=== PATIENT | male | born 1990 | race African-American/Black ===

== ENCOUNTER 2016-07-27 10:49 | Emergency (ER) | payer SELFPAY ==
[~2016-07-27] VITALS: Ht 177.8 cm; Wt 90.7 kg
[2016-07-27 11:46] VITALS: BP 140/86
[2016-07-27] MEDS ORDERED: DEXAMETHASONE SOD PHOS 20 MG/5 ML VIAL. IM ONE (12:15)
[2016-07-27] MEDS ORDERED: CEPH-264 PO (12:58)
--- NOTE | 2016-07-27 12:58 | PHYS DOC ---
Past Medical History Past Medical History: No Pertinent History Past Surgical History: No Surgical History Additional Information: 2 PPD Alcohol Use: Occasionally Drug Use: None Adult General Chief Complaint Chief Complaint: SKIN RASH/ABSCESS HPI HPI Patient is a 26 year old male who presents with itchy rash for one week. The rash began on his arms and has spread to his neck and trunk. He initially thought that the rash was due to his eczema, however it is worse than his usual eczema. He recently began using a new soap and thinks it is an allergic reaction to the new soap. He has had a sore throat but denies any difficulty breathing or swelling of the lips or tongue. He's been taking Benadryl and applying a topical cortisone cream without relief. He does not have a PCP. Review of Systems Review of Systems Constitutional: Denies fever or chills. [] Eyes: Denies change in visual acuity, redness, or eye pain. [] HENT: Denies ear pain, nasal congestion. Reports sore throat. Denies angioedema. Respiratory: Denies cough or shortness of breath. [] Integument: The ports pruritic rash. Neurologic: Denies focal weakness or sensory changes. [] Current Medications Current Medications Current Medications Medications (Trade) Dose Ordered Sig/Melecio Start Time Stop Time Status Last Admin Dose Admin Dexamethasone Sodium Phosphate (Decadron) 10 mg 1X ONCE 07/27/16 12:15 07/27/16 12:16 DC 07/27/16 12:45 10 MG Allergies Allergies Allergies Coded Allergies Type Severity Reaction Last Updated Verified No Known Drug Allergies 03/10/14 No Physical Exam Physical Exam Constitutional: Well developed, well nourished, no acute distress, non-toxic appearance. [] HENT: Normocephalic, atraumatic, bilateral external ears normal, oropharynx moist, no oral exudates, nose normal. There is no posterior pharyngeal erythema or tonsillar edema. No angioedema. Eyes: PERRLA, EOMI, conjunctiva normal, no discharge. [] Neck: Normal range of motion, no tenderness, supple, no stridor. [] Cardiovascular: Heart rate regular rhythm, no murmur [] Lungs & Thorax: Bilateral breath sounds clear to auscultation without wheezes, rales, or rhonchi. Skin: Warm, dry, no erythema. There is urticarial rash on bilateral upper extremities, neck, chest, and back. There are a few areas of excoriation from scratching with scabbing. There is not appear to be any sign of infection. Back: No tenderness, no CVA tenderness. [] Extremities: No tenderness, no cyanosis, no clubbing, ROM intact, no edema. [] Neurologic: Alert and oriented X 3, normal motor function, normal sensory function, no focal deficits noted. [] Psychologic: Affect normal, judgement normal, mood normal. [] Current Patient Data Vital Signs Vital Signs Date Time Temp Pulse Resp B/P Pulse Ox O2 Delivery O2 Flow Rate FiO2 07/27/16 11:46 98.3 107 18 96 Room Air 98.3 EKG EKG [] Radiology/Procedures Radiology/Procedures [] Course & Med Decision Making Course & Med Decision Making Pertinent Labs and Imaging studies reviewed. (See chart for details) Patient presents with pruritic rash, likely due to allergic reaction to a new soap. He does not have any dyspnea or angioedema. There are areas that have been scratched were all due to itching without evidence of infection. He is given IM Decadron in the emergency department. He is discharged with prescription for Keflex. He is instructed to continue Benadryl and Pepcid at home. He is instructed to discontinue use of the new soap. Return precautions were discussed. He verbalizes understanding and agrees with plan. Dragon Disclaimer Dragon Disclaimer This electronic medical record was generated, in whole or in part, using a voice recognition dictation system. Departure Departure Impression: Primary Impression: Allergic reaction Additional Impression: Urticaria Disposition: 01 HOME, SELF-CARE Condition: STABLE Referrals: NO PCP (PCP) Patient Instructions: Hives, [id number] Additional Instructions: You were treated with a steroid injection for your hives today in the emergency department. Please continue to take Benadryl and Pepcid to help with itching. Use according to package instructions. Please take the prescribed antibiotic to prevent infection from the areas that have been scratched open. Please discontinue use of the new soap that is the likely cause of your allergic reaction. Return to emergency department if you have increased difficult to swelling, swelling of the lips or tongue, or other new or concerning symptoms. Scripts Cephalexin (Keflex)500 Mg Capsule1 Cap PO BID #14 CAP Prov:YOLI,ADRYAN K PA 07/27/16 Problem Qualifiers Primary Impression: Allergic reaction Encounter type: initial encounter Qualified Code: T78.40XA - Allergy, unspecified, initial encounter ADRYAN KENT Jul 27, 2016 12:58
== END 2016-07-27 13:02 | disposition home or self-care (01) ==
LOC: ER 10:49
DX: T78.49XA Other allergy, initial encounter (principal); L50.9 Urticaria, unspecified; J02.9 Acute pharyngitis, unspecified; F17.210 Nicotine dependence, cigarettes, uncomplicated; X58.XXXA Exposure to other specified factors, initial encounter
CPT/HCPCS: 96372; 99283; J1100

== ENCOUNTER 2021-03-24 16:00 | Emergency (ER) | payer SELFPAY ==
[~2021-03-24] VITALS: Ht 180.3 cm; Wt 100.0 kg
[~2021-03-24 16:00] MED LIST: CEPH-264 PO
--- NOTE | 2021-03-24 16:41 | ED.ADGEN ---
Past Medical History Past Medical History: No Pertinent History Past Surgical History: No Surgical History Additional Past Surgical Histo: WISDOM TEETH Smoking Status: Current Every Day Smoker Alcohol Use: Occasionally Drug Use: None General Adult EDM: Chief Complaint: DENTAL PROBLEM HPI: HPI: Patient is a 30-year-old male who arrives via EMS after experiencing left-sided jaw pain for the past 3 days. Patient believes he may have a tooth ache in the mandibular segment of his jaw at the left side. Patient states during this time he has had increasing pain. Patient also reports dizziness during this time as well. Upon arrival it has been learned the patient is febrile. Despite the patient's jaw pain he denies any history of trauma. He further denies any regular dental follow-up. Upon further inspection the patient's blood pressure is significantly elevated as well. The patient does not take antihypertensive medication. He also states he is not any chest pain or shortness of air. He further denies any neurological change such as focal motor or sensory deficit. He is awake, alert and nontoxic-appearing. Review of Systems: Review of Systems: Constitutional: Reports fever. Denies chills. [] Eyes: Denies change in visual acuity. [] HENT: Reports dental pain with jaw swelling. Denies nasal congestion or sore throat. [] Respiratory: Denies cough or shortness of breath. [] Cardiovascular: Denies chest pain or edema. [] GI: Denies abdominal pain, nausea, vomiting, bloody stools or diarrhea. [] : Denies dysuria. [] Musculoskeletal: Denies back pain or joint pain. [] Integument: Denies rash. [] Neurologic: Reports dizziness. Denies headache, focal weakness or sensory changes. [] Endocrine: Denies polyuria or polydipsia. [] Lymphatic: Denies swollen glands. [] Psychiatric: Denies depression or anxiety. [] Family History: Family History: Noncontributory Current Medications: Current Medications Medications (Trade) Dose Ordered Sig/Melecio Start Time Stop Time Status Last Admin Dose Admin Acetaminophen (Tylenol) 1,000 mg 1X ONCE 03/24/21 16:45 03/24/21 16:46 DC 03/24/21 16:38 1,000 MG Ceftriaxone Sodium (Rocephin) 1 gm 1X ONCE 03/24/21 17:30 03/24/21 17:31 DC Sodium Chloride 1,000 ml @ 1,000 mls/hr 1X ONCE 03/24/21 17:00 03/24/21 17:59 03/24/21 17:00 1,000 MLS/HR Allergies: Allergies: Allergies Coded Allergies Type Severity Reaction Last Updated Verified No Known Drug Allergies 03/10/14 No Physical Exam: PE: Constitutional: Uncomfortable appearing. Well developed, well nourished, non- toxic appearance. [] HENT: Patient has what appears to be a dental cavity in the region of his molars at the left side of his mandibular jaw. Normocephalic, atraumatic, bilateral external ears normal, oropharynx moist, no oral exudates, nose normal. [] Eyes: PERRLA, EOMI, conjunctiva normal, no discharge. [] Neck: Normal range of motion, no tenderness, supple, no stridor. [] Cardiovascular: Tachycardia. No murmur [] Lungs & Thorax: Bilateral breath sounds clear to auscultation [] Abdomen: Bowel sounds normal, soft, no tenderness, no masses, no pulsatile masses. [] Skin: Warm, dry, no erythema, no rash. [] Back: No tenderness, no CVA tenderness. [] Extremities: No tenderness, no cyanosis, no clubbing, ROM intact, no edema. [] Neurologic: Alert and oriented X 3, normal motor function, normal sensory function, no focal deficits noted. [] Psychologic: Affect normal, judgement normal, mood normal. [] Current Patient Data: Labs: Laboratory Tests Test 03/24/21 16:43 03/24/21 17:00 White Blood Count 22.7 x10^3/uL (4.0-11.0) H Red Blood Count 5.66 x10^6/uL (4.30-5.70) Hemoglobin 17.2 g/dL (13.0-17.5) Hematocrit 49.7 % (39.0-53.0) Mean Corpuscular Volume 88 fL (79-100) Mean Corpuscular Hemoglobin 31 pg (25-35) Mean Corpuscular Hemoglobin Concent 35 g/dL (31-37) Red Cell Distribution Width 14.9 % (11.5-14.5) H Platelet Count 251 x10^3/uL (140-400) Neutrophils (%) (Auto) 86 % (31-73) H Lymphocytes (%) (Auto) 6 % (24-48) L Monocytes (%) (Auto) 7 % (0-9) Eosinophils (%) (Auto) 1 % (0-3) Basophils (%) (Auto) 0 % (0-3) Neutrophils # (Auto) 19.5 x10^3/uL (1.8-7.7) H Lymphocytes # (Auto) 1.4 x10^3/uL (1.0-4.8) Monocytes # (Auto) 1.5 x10^3/uL (0.0-1.1) H Eosinophils # (Auto) 0.2 x10^3/uL (0.0-0.7) Basophils # (Auto) 0.1 x10^3/uL (0.0-0.2) Platelet Estimate Pending Sodium Level 136 mmol/L (136-145) Potassium Level 4.4 mmol/L (3.5-5.1) Chloride Level 100 mmol/L (98-107) Carbon Dioxide Level 29 mmol/L (21-32) Anion Gap 7 (6-14) Blood Urea Nitrogen 7 mg/dL (8-26) L Creatinine 1.3 mg/dL (0.7-1.3) Estimated GFR (Cockcroft-Gault) 77.4 BUN/Creatinine Ratio 5 (6-20) L Glucose Level 102 mg/dL (70-99) H Calcium Level 8.7 mg/dL (8.5-10.1) Total Bilirubin 0.4 mg/dL (0.2-1.0) Aspartate Amino Transferase (AST) 54 U/L (15-37) H Alanine Aminotransferase (ALT) 105 U/L (16-63) H Alkaline Phosphatase 106 U/L (46-116) Troponin I Quantitative < 0.017 ng/mL (0.000-0.055) Total Protein 8.2 g/dL (6.4-8.2) Albumin 3.8 g/dL (3.4-5.0) Albumin/Globulin Ratio 0.9 (1.0-1.7) L SARS-CoV-2 Antigen (Rapid) Negative (NEGATIVE) Laboratory Tests 03/24/21 16:43 Laboratory Tests 03/24/21 16:43 Vital Signs: Vital Signs Date Time Temp Pulse Resp B/P (MAP) Pulse Ox O2 Delivery O2 Flow Rate FiO2 03/24/21 16:23 101.0 110 28 204/100 (134) 100 Room Air 101.0 EKG: EKG: EKG was obtained at 1641 hrs. reveals a sinus tachycardia with a ventricular rate of 101 bpm. There is right axis deviation without acute ST/T wave changes to denote ischemia. [] Heart Score: C/O Chest Pain: No Risk Factors: Risk Factors: DM, Current or recent (<one month) smoker, HTN, HLP, family history of CAD, obesity. Risk Scores: Score 0 - 3: 2.5% MACE over next 6 weeks - Discharge Home Score 4 - 6: 20.3% MACE over next 6 weeks - Admit for Clinical Observation Score 7 - 10: 72.7% MACE over next 6 weeks - Early Invasive Strategies Radiology/Procedures: Radiology/Procedures: [] Course & Med Decision Making: Course & Med Decision Making Pertinent Labs and Imaging studies reviewed. (See chart for details) The patient remains awake, alert despite having visible discomfort. Patient does have evidence dental caries of the left side of his jaw on the mandibular segment. I have concerns the patient may be septic according to SIRS criteria. As such given the extent of the patient's fever along with pain and how it is radiating into his neck at the left side I have elected to order CT imaging for further evaluation as it relates to the patient's chief complaint. The martin yi's care will be transitioned to Dr. Sandra Marshall for further evaluation and treatment. [] Enoch Disclaimer: Enoch Disclaimer: This electronic medical record was generated, in whole or in part, using a voice recognition dictation system. Departure Departure Impression: Primary Impression: Dental caries Additional Impressions: Uncontrolled hypertension Fever Neck pain Leukocytosis Disposition: 30 STILL A PATIENT Referrals: NO PCP (PCP) Problem Qualifiers NITO POLANCO DO Mar 24, 2021 16:41
[2021-03-24] MEDS ORDERED: ACETAMINOPHEN 500 MG TABLET PO ONE (16:45)
[2021-03-24 16:56] LABS: BASO # 0.1 x10^3/uL (0.0-0.2); BASO % 0 % (0-3); EOS # 0.2 x10^3/uL (0.0-0.7); EOS % 1 % (0-3); HEMATOCRIT 49.7 % (39.0-53.0); HEMOGLOBIN 17.2 g/dL (13.0-17.5); LYMPH # 1.4 x10^3/uL (1.0-4.8); LYMPH % 6 % (24-48); MEAN CORPUSCULAR HEMOGLOBIN 31 pg (25-35); MEAN CORPUSCULAR HGB CONC 35 g/dL (31-37); MEAN CORPUSCULAR VOLUME 88 fL (79-100); MONO # 1.5 x10^3/uL (0.0-1.1); MONO % 7 % (0-9); NEUT # 19.5 x10^3/uL (1.8-7.7); NEUT % 86 % (31-73); PLATELET COUNT 251 x10^3/uL (140-400); RED BLOOD COUNT 5.66 x10^6/uL (4.30-5.70); RED CELL DISTRIBUTION WIDTH 14.9 % (11.5-14.5); WHITE BLOOD COUNT 22.7 x10^3/uL (4.0-11.0)
[2021-03-24] MEDS ORDERED: IV NORMAL SALINE 1000ML BAG 1,000 ML IV ONE (17:00)
--- NOTE | 2021-03-24 17:03 | RAD ---
EXAM: Chest, single view. HISTORY: Fever. COMPARISON: None. FINDINGS: A frontal view of the chest is obtained. There is no infiltrate, pleural effusion or pneumo thorax. The heart is normal in size. IMPRESSION: No acute pulmonary finding. Electronically signed by: Grace Arias MD (03/24/2021 5:00 PM) [facility]
[2021-03-24 17:08] LABS: CALCIUM 8.7 mg/dL (8.5-10.1); CREATININE 1.3 mg/dL (0.7-1.3); GFR 77.4; POTASSIUM 4.4 mmol/L (3.5-5.1)
[2021-03-24 17:14] LABS: ALBUMIN 3.8 g/dL (3.4-5.0); ALBUMIN/GLOBULIN RATIO 0.9 (1.0-1.7); TOTAL BILIRUBIN 0.4 mg/dL (0.2-1.0); TOTAL PROTEIN 8.2 g/dL (6.4-8.2)
[2021-03-24] MEDS ORDERED: cefTRIAXone IV Push 1 GM VIAL. IVP ONE (17:30)
--- NOTE | 2021-03-24 17:42 | RAD ---
CT brain without contrast. HISTORY: Dizzy CT scan of brain was done without contrast. Comparison is made with an old study from February 2014. Sinuses are clear except for small mucous retention cysts. There is no skull fracture. Ventricles ar e normal in size. There is no mass effect or shift of the midline. An acute CVA is not identified. Th ere is no intracranial hemorrhage or subdural hematoma. IMPRESSION: 1. No intracranial hemorrhage or acute finding noted. PQRS Compliance Statement: One or more of the following individualized dose reduction techniques were utilized for this examinat ion: 1. Automated exposure control 2. Adjustment of the mA and/or kV according to patient size 3. Use of iterative reconstruction technique Electronically signed by: Kana Gongora MD (03/24/2021 5:40 PM) [facility]
[2021-03-24 17:46] LABS: % BANDS 11 % (0-9); % LYMPHS 8 % (24-48); % MONOS 6 % (0-10); % SEGS 75 % (35-66); PLT ESTIMATE ADEQUATE (ADEQUATE)
[2021-03-24] MEDS ORDERED: IOHEXOL 300 MG/ML 100ML VIAL. IV ONE (18:00)
[2021-03-24 18:48] VITALS: BP 185/102
--- NOTE | 2021-03-24 18:55 | RAD ---
CT scan of the neck with contrast 03/24/2021 CLINICAL HISTORY: Left-sided neck pain in the region of the mandible TECHNIQUE: After the intravenous administration of 70 cc of Omnipaque 300, contiguous, 0.625 mm axial sections were obtained through the neck. 3 mm reconstructed sagittal axial and coronal images were o btained. One or more of the following individualized dose reduction techniques were utilized for this study: 1. Automated exposure control. 2. Adjustment of the mA and/or kV according to patient size. 3. Use of iterative reconstruction technique. FINDINGS: The mucosal structures of the nasal pharynx, oral pharynx, hypopharynx and larynx are withi n normal limits. The parotid and submandibular glands are within normal limits. The thyroid gland is within normal limits. Prominent likely reactive lymph nodes are seen within the suprahyoid neck which measure 1 to 2.7 cm in size. Mild mucosal thickening is seen scattered throughout the paranasal sinuses. The orbits are within nor mal limits. A vestigial left upper third molar is seen. The right upper third molar appears to have b een extracted. Partial extraction of the lower third molars is seen. No acute osseous abnormality is noted involving the mandible. IMPRESSION: No acute abnormality is seen. Electronically signed by: Antonio Santiago MD (03/24/2021 6:53 PM) [id number]
[2021-03-24] MEDS ORDERED: AMOX1TAB61 PO (19:22)
[2021-03-24] MEDS ORDERED: HYDR-2761 PO (19:22)
--- NOTE | 2021-03-25 17:28 | NUR ---
IP: Informed pt of negative covid test. Pt verbalized understanding.
== END 2021-03-24 19:53 | disposition home or self-care (01) ==
LOC: ER 16:00
DX: K02.9 Dental caries, unspecified (principal); Z20.822 Contact with and (suspected) exposure to COVID-19; I10 Essential (primary) hypertension; R50.9 Fever, unspecified; M54.2 Cervicalgia; D72.829 Elevated white blood cell count, unspecified; F17.200 Nicotine dependence, unspecified, uncomplicated
CPT/HCPCS: 36415; 70450; 70491; 71045; 80053; 83605; 84484; 85007; 85025; 87070; 87426; 87880; 96361; 96374; 99285; J0696; J7030; Q9967; U0003; U0005